=== PATIENT | male | born 2000 | race Two or more races ===

== ENCOUNTER 2020-02-12 16:44 | Emergency (ER) | payer OTHER ==
[~2020-02-12] VITALS: Ht 175.3 cm; Wt 75.3 kg
== END 2020-02-12 18:35 | disposition home or self-care (01) ==
LOC: ER 16:44
DX: J03.80 Acute tonsillitis due to other specified organisms (principal)

== ENCOUNTER 2024-09-14 18:59 | Emergency (ER) | payer OTHER ==
[~2024-09-14] VITALS: Ht 175.3 cm; Wt 97.5 kg
[2024-09-14] MEDS ORDERED: KETOROLAC TROMETHAMINE 15 MG VIAL IM STA (20:09)
[2024-09-14 20:37] LABS: URINE APPEARANCE Clear; URINE BILIRRUBIN Negative (NEGATIVE); URINE BLOOD Negative; URINE COLOR Yellow; URINE GLUCOSE Negative (NEGATIVE); URINE KETONE 15 (NEGATIVE); URINE LEUKOCYTE Negative; URINE NITRATE Negative; URINE PROTEIN Negative (NEGATIVE); URINE UROBILINOGEN 1.0 E.U./dl
[2024-09-14 20:38] LABS: URINE BACTERIA 6.0 uL (0.0-1933); URINE CAST 0.00 uL (0.0-1.40); URINE EPITHELIAL CELLS 1.2 uL (0.0-38.8); URINE RBC 0.7 uL (0.0-20.8); URINE WBC 2.6 uL (0.0-23.2)
[2024-09-14] MEDS ORDERED: CELEBREX200MG PO (20:55)
[2024-09-14] MEDS ORDERED: METAXALONE800 MG PO (20:55)
== END 2024-09-14 21:00 | disposition home or self-care (01) ==
LOC: ER 18:59
PROVIDERS: Emergency Medicine
DX: M54.9 Dorsalgia, unspecified (principal); Z88.0 Allergy status to penicillin

== ENCOUNTER 2024-09-16 18:18 | Emergency (ER) | payer OTHER ==
[~2024-09-16] VITALS: Ht 175.3 cm; Wt 97.5 kg
[~2024-09-16 18:18] MED LIST: CELEBREX200MG PO; METAXALONE800 MG PO
[2024-09-16] MEDS ORDERED: BACLOFEN10 MG PO (21:07)
[2024-09-16] MEDS ORDERED: DICLOFENAC SODI75 MG PO (21:07)
[2024-09-16] MEDS ORDERED: KETOROLAC TROMETHAMINE 60 MG VIAL IM ONE (21:15)
[2024-09-16] MEDS ORDERED: DEXAMETHASONE SODIUM PHOSPHATE 4 MG/ML VIAL IM ONE (21:15)
[2024-09-16] MEDS ORDERED: ORPHENADRINE CITRATE 30 MG/ML AMPUL IM ONE (21:15)
== END 2024-09-16 22:09 | disposition home or self-care (01) ==
LOC: ER 18:22
DX: M54.50 Low back pain, unspecified (principal); Z88.0 Allergy status to penicillin; Z88.1 Allergy status to other antibiotic agents